=== PATIENT | female | born 1995 | race Asian ===

== ENCOUNTER 2024-12-06 09:12 | Emergency (ER) | payer OTHER, SELFPAY ==
[2024-12-06 09:13] VITALS: BP 159/92
--- NOTE | 2024-12-06 09:34 | ED.GENMED ---
History of Present Illness
General
Chief Complaint: Breathing Problem
Source: patient
Exam Limitations: none
Time Seen by Provider: 12/06/24 09:16
Nursing documentation reviewed up to this point in time: agreed with
History of Present Illness
History of Present Illness:
29-year-old female no past medical history presents for fever for the past 5 days with Tmax of 103, last fever was 4 AM measuring 101 with which she treated ibuprofen 400 mg, and a new cough over the past 2 days that is mostly dry and a chest
discomfort with cough to the right upper chest wall. Patient says she is not short of breath denies any pleuritic chest pain but has discomfort only when she coughs in that 1 spot. She is not having any sore throat, headache, nausea, vomiting,
diarrhea, nasal congestion or sinus pressure. She did a home COVID test which was negative and she has been using [id number] cough syrup
she is not feeling overly short of breath, just has pain with coughing and overall fatigue
she did take home preg test just because of the fatigue and it was neg
she also has h/o white coat syndrome, but also preeclampsia; and her bp at home was 120/70 yesterday
Past History
Past History
ED Past Medical History: Other (ADD)
Social History
Tobacco: Non-smoker
Alcohol: Occasional
Drug: None
Personal:
Living: with family
Employment: Employed
Review of Systems
Review of Systems
Allergies reviewed?: Yes
All Other Systems: Not applicable
Phy Exam
Physical Exam
Physical Exam:
GENERAL: Alert , in no apparent distress
EYE: pupils equal and reactive
NECK: Supple
ENT: b/l TM s clear, pharynx erythematous but no tonsillar hypertrophy or exudates
CARDIAC: Regular rate and rhythm, no edema
LUNGS: Clear breath sounds bilaterally, no acute respiratory distress, no wheezes/rales/rhonchi, occ cough
chest wall nontender
ABDOMEN: Soft, without focal tenderness, no r/g, no cvat, normal bowel sounds
NEUROLOGICAL: Alert and oriented, no focal neuro deficits
SKIN: Warm and dry, skin intact.
MUSCULOSKELETAL: No edema, well perfused.
PSYCH: Normal and appropriate interaction.
Course
Orders/Labs/Results
Orders:
Orders
12/06/24 09:30
Electrocardiogram (*1) Urgent
Reason for Study: Chest Pain
EKG- Treatment ONCE
CR Chest - 2 Views Urgent
Comment:
Reason For Exam: R cp, cough, fever
12/06/24 09:36
COVID-19 Antigen Urgent
Source: Nasal Swab
Influenza A+B Rapid Molecular Urgent
KELLEN Source: Nasal Swab
Specimen Description:
12/06/24 10:27
Amoxicillin 875 mg/Clav 125 mg [Augmentin 875 mg/125 mg] 1 tablet PO NOW STA
Azithromycin [Zithromax] 500 mg PO NOW STA
Vital Signs
Initial and Last Documented VS:
Initial Vital Signs
Temp Pulse Resp BP Pulse Ox
36.9 C 78 18 159/92 98
12/06/24 09:13 12/06/24 09:13 12/06/24 09:13 12/06/24 09:13 12/06/24 09:13
Last Documented Vital Signs
Temp Pulse Resp BP Pulse Ox
36.6 C 84 16 157/85 97
12/06/24 10:30 12/06/24 10:30 12/06/24 10:30 12/06/24 10:30 12/06/24 10:30
MDM/Problems Addressed
Differential Diagnosis Includes:
URI, viral illness, pneumonia, influenza,
MDM/Problems Addressed:
29 y/o F with no pmh
here with fever x 5 days, cough most dry
pain in the R upper chest with coughing
no pleuritic pain
no significant sob
no OCPs
lmp 3 weeks ago
took home preg test which was neg
was on bp meds during preg in 2022 preeclampsia, resolved
pt is very well appearing
looks very comfortable
not tachypneic
lungs clear, no wheezing
moving good air
ekg nonischemic nsr
very minimal j point elevation does not look like st elevation/pericardicits
chest xray indep [id number] showing sizeable RUL pna
will cover with azithrmoycin and augmentin
pt will need repeat cxr to ensure resolutaion
bp still elevated, 150s; not unusula fo rher in the office/clinic
she will check at home
*Pulse Oximetry
SaO2: 98
Oxygen Mode of Delivery: Room air
Patient hypoxic: no (98)
*Critical Care Note
Total Time (30-74mins, 75-104mins- exclusive of procedures): Not Applicable
ED Attending Note
-
Portions of this chart may have been created with voice recognition software.� Occasional wrong word or��sound alike� substitutions may have occurred due to the inherent limitations of voice recognition software.
Discharge Plan
Departure
Patient Disposition: Home (Routine Discharge)
Date of Disposition: 12/06/24
Time of Disposition: 10:29
Patient with high blood pressure during this ER visit?: Yes
Condition: Fair
Covid-19: Negative COVID-19
Discharge Problem:
Pneumonia, Elevated blood pressure reading
Instructions: Pneumonia in adults - ED discharge instructions, BLOOD PRESSURE
Prescriptions:
New
amoxicillin-pot clavulanate 875-125 mg tablet
1 tab PO BID Qty: 20 0RF
azithromycin [Zithromax] 250 mg tablet
250 mg PO DAILY Qty: 4 0RF
No Action
prenat.vits,jennifer,www-lbrh-utklq Tablet
1 tab PO DAILY
ibuprofen 600 mg Tablet
600 mg PO Q6HPRN PRN (Reason: cramps) Qty: 0 0RF
acetaminophen 325 mg Tablet
650 mg PO Q4HPRN PRN (Reason: mild pain) Qty: 0 0RF
sennosides-docusate sodium [Senna Plus] 8.6-50 mg Tablet
1 tab PO DAILYPRN PRN (Reason: constipation) Qty: 0 0RF
simethicone [Gas Relief 80 (simethicone)] 80 mg Tablet,Chewable
80 mg PO TIDPRN PRN (Reason: flatulence) Qty: 0 0RF
labetalol 200 mg Tablet
200 mg PO BID Qty: 0 0RF
oxycodone-acetaminophen [Percocet] 2.5-325 mg tablet
1 tab PO Q4H PRN (Reason: severe pain) Qty: 10 0RF
Referrals:
Guy Hernández DO [Family Provider, Family Practice] - Follow up in 5-7 days
Activity Restrictions/Additional Instructions:
You have a right upper lobe pneumonia. You need to take Augmentin twice a day for the next 10 days and Zithromax once a day for the next 4 days for this. You should have repeat a chest x-ray in 2 to 3 weeks to ensure resolution. We should expect
your fevers to subside by 48 hours into antibiotics. If you continue to have fever or have any worsening symptoms like worsening chest pain, shortness of breath, productive cough, bloody sputum, painful breathing etc. you should return to the ER
immediately.
Note that your blood pressure was elevated, 150s over 90s. Have this rechecked at home. Should you continue to have elevated blood pressure you need to have that addressed by your doctor.
Interventions
Interventions:
*Risk Screen - Suicide Last Done: 12/06/24 09:13
*General Assessment Last Done: 12/06/24 09:13
*Neglect/Abuse Screening Last Done: 12/06/24 09:13
Discharge Date and Time
Print Language: TELUGU
[2024-12-06 10:01] LABS: COVID-19 Antigen Negative (Negative)
[2024-12-06 10:30] VITALS: BP 157/85
[2024-12-06] MEDS: ZITHROMAX 500 MG PO (10:40)
[2024-12-06] MEDS: AUGMENTIN 875 MG/125 MG 1 TABLET PO (10:40)
== END 2024-12-06 10:52 | disposition home or self-care (01) ==
LOC: EMR 09:12
PROVIDERS: Physician Assistant; EMERGENCY PHYSICIAN Emergency Medicine; FAMILY PHYSICIAN Student in an Organized Health Care Education/Training Program
DX: J18.9 Pneumonia, unspecified organism (principal); R03.0 Elevated blood-pressure reading, without diagnosis of hypertension
CPT/HCPCS: 99283; 71046; 87502; 87811; 93005